=== PATIENT | male | born 1985 | race Caucasian/White ===

== ENCOUNTER 2019-12-03 17:14 | Emergency (ER) | payer OTHER, SELFPAY ==
[2019-12-03 17:20] VITALS: BP 155/83; PULSE 102; RESP 18; TEMP 37.2; O2SAT 95
--- NOTE | 2019-12-03 18:21 | ED.URI ---
HPI - URI/Sore Throat General Chief Complaint: Upper Respiratory Infection Stated Complaint: cough Time Seen by Provider: 12/03/19 17:47 Source: patient and RN notes reviewed Mode of arrival: ambulatory Limitations: no limitations History of Present Illness HPI Narrative: Patient is a 34-year-old male who presents complaining of headache, generalized body aches and intermittent nausea x1 day. He reports chills and sweats, but denies taking temperature. He denies sore throat, cough, congestion, vomiting or diarrhea. He denies any influenza vaccine this year. He denies taking [id number] medications over the past day. MD elicited complaint: other (headache and bodyaches) Related Data Allergies Allergy/AdvReac Type Severity Reaction Status Date / Time No Known Allergies Allergy Verified 12/03/19 17:24 Review of Systems Review of Systems: Narrative: CONSTITUTIONAL: Reports chills, sweats, and generalized body aches EYES: Denies visual changes, redness, or discharge. ENT: Denies rhinorrhea, congestion, sore throat, or otalgia. CARDIOVASCULAR: Denies chest pain, palpitations, or edema. RESPIRATORY: Denies cough or dyspnea. GASTROINTESTINAL: Denies abdominal pain, vomiting, or diarrhea. Reports intermittent nausea GENITOURINARY: Denies dysuria or hematuria. SKIN: Denies rash or itching. MUSCULOSKELETAL: Denies back pain, joint pain, or myalgia. NEUROLOGIC: Reports headache, denies numbness, dizziness, or weakness. PSYCHIATRIC: Denies anxiety or depression. FOR[facility]LY [facility] Past Medical History Medical History (Updated 12/03/19 @ 18:59 by KATYA Rodriguez) No significant past medical history Surgical History Surgical History (Updated 12/03/19 @ 18:24 by KATYA Rodriguez) No history of previous surgery Social History Social History (Updated 12/03/19 @ 18:25 by KATYA Rodriguez) Smoking status: Never smoker Alcohol intake: never Substance use: never Occupation/Education: occupation Gender identity (if verbalized by the patient): Male Exam Narrative: Exam Narrative: GENERAL: Well-appearing, well-nourished, and in no acute distress. HEAD: Normocephalic, atraumatic. EYES: EOMI. No redness or drainage. Conjunctiva are normal. ENT: Mucous membranes pink and moist. Nares clear. No rhinorrhea. TMs normal bilaterally. Throat normal. Uvula midline. NECK: AROM. Supple. No lymphadenopathy. CHEST: No respiratory distress. Clear to auscultation. HEART: Regular rate and rhythm. No murmur appreciated. Normal peripheral pulses. GI: Soft, nontender without rebound, or guarding. No distention. Bowel sounds normal in all quadrants. MUSCULOSKELETAL: No bony tenderness. EXTREMITIES: Normal range of motion. No edema. SKIN: Warm, dry, no rash. NEURO: No focal deficits. Alert and oriented x3. Gait steady. PSYCH: Normal affect. No signs of depression or anxiety. Course Vital Signs Vital signs: Vital Signs Temperature 37.2 C 12/03/19 17:20 Pulse Rate 102 H 12/03/19 17:20 Respiratory Rate 18 12/03/19 17:20 Blood Pressure 155/83 H 12/03/19 17:20 Pulse Oximetry 95 12/03/19 17:20 Temperature 37.2 C 12/03/19 17:20 Pulse Rate 102 H 12/03/19 17:20 Respiratory Rate 18 12/03/19 17:20 Blood Pressure 155/83 H 12/03/19 17:20 Pulse Oximetry 95 12/03/19 17:20 Reviewed. MDM - URI/Sore Throat Lab Data Lab results narrative: Influenza A+, reviewed Labs: Influenza A Screen Positive Reference Range: Negative Influenza B Screen Negative Reference Range: Negative Critical Care Time Critical Care Time Critical Care Time: No Discharge Plan Discharge Clinical Impression: Influenza Patient Disposition: Home, Self-Care Condition: Stable Instructions: Influenza (ED) Additional Instructions: Take Tamiflu as directed. You may take Tylenol or ibuprofen as directed for fever. Rest and drink plenty of fluids. Follow-up wi
[2019-12-03] MEDS: IBUPROFEN IV 800 MG/200 ML 800 MG/200 ML BAG 400 MG IVPB (19:10)
[2019-12-03] MEDS: SODIUM CHLORIDE 0.9% IV 1,000 ML 999 ML IV CONT (19:10)
== END 2019-12-03 20:15 | disposition home or self-care (01) ==
PROVIDERS: Emergency Provider Nurse Practitioner
DX: J10.1 Influenza due to other identified influenza virus with other respiratory manifestations (principal)
CPT/HCPCS: 87804; 96361; 96365; 99284; J1741; J7030